=== PATIENT | male | born 1945 | race Caucasian/White ===

== ENCOUNTER 2017-10-15 12:13 | Outpatient (CLI) | payer MEDICARE, MEDICAID ==
[2017-10-16] MEDS ORDERED: HYDROCODONE-APA1 TAB PO (21:05)
[2017-10-16] MEDS ORDERED: ULTRAM50 MG PO (21:05)
== END 2017-10-15 19:30 ==
LOC: D.OPS 12:13
DX: D64.9 Anemia, unspecified (principal)

== ENCOUNTER 2017-10-15 19:33 | Inpatient (IN) | payer MEDICARE, MEDICAID ==
[~2017-10-15] VITALS: Ht 182.9 cm; Wt 83.0 kg
--- NOTE | ~2017-10-15 | EC ---
PATIENT:PATI LINTON DATE OF SERVICE: 10/16/17 SEX: M MEDICAL RECORD: [id number] DATE OF : 49 LOCATION:D.M2 D.210 AGE OF PATIENT: 72 ADMISSION DATE: 10/16/17 REFERRING PHYSICIAN: INTERPRETING PHYSICIAN: LUCIO AGUILAR MD ECHOCARDIOGRAM REPORT ECHO CHARGES CLINICAL DIAGNOSIS: ECHOCARDIOGRAPHIC MEASUREMENTS (adult normal given) AC root (d.<3.7cm) cm LV Septum d (<1.2 cm> cm Valve Excursion cm LV Septum (systole) cm Left Atria (s.<4.0cm> cm LVPW d(<1.2cm) cm RV (d.<2.3cm) cm LVPW (sytole) cm LV diastole(<5.6CM) cm MV E-F(>70mm/sec) cm LV systole cm LVOT Diameter cm MV exc.(>10mm) cm Est.ejection fraction (50-75%) % Pericardial Effusion DOPPLER: LVIT cm/sec A cm/sec E cm/sec LA cm/sec RVSP mmHg LVOT cm/sec AOP1/2T m/s Asc. Ao cm/sec RVOT cm/sec RA cm/sec PA cm/sec AV Gradient Peak mmHg AV Mean mmHg AV Area cm MV Gradient Peak mmHg MV Mean mmHg MV Area cm COMMENTS: [place] Line Attendant: Mortuary Operations Manager: LU DATE OF SERVICE: 10/16/2017 ECHOCARDIOGRAM FINDINGS: 1. Left ventricular chamber size is within normal limits. Left ventricular systolic function is normal. Overall ejection fraction estimated at 55%. 2. Left atrium is enlarged at 4.1 cm. Right atrium and right ventricular chamber sizes are as well mildly dilated. 3. Valvular structures have normal structure and motion. ECHOCARDIOGRAM REPORT [id number] PATI LINTON 4. Doppler interrogation reveals moderate mitral regurgitation, mild tricuspid regurgitation, no other valvular insufficiency or stenosis. 5. No evidence of pericardial effusion or left ventricular thrombus. TRANSINT:[id number] Voice Confirmation ID: [id number] DOCUMENT ID: [id number] LUCIO AGUILAR MD at 1202 CC: [id number] DICTATION DATE: 10/16/17 1231 SENIOR REPORT DEVELOPER: 10/16/17 1311 DIS IN 10/18/17 [place] [id number] [place] [address]
[2017-10-15 20:42] LABS: BASOPHILS 0.2 % (0-2); EOSINOPHILS 1.7 % (0-7); HEMATOCRIT 29.9 % (42.0-54.0); HEMOGLOBIN 8.8 g/dL (13.5-17.5); IMMATURE GRANULOCYTES 0.2 % (0-5); MCH 22.4 pg (26.0-34.0); MCHC 29.4 g/dL (31.0-37.0); MCV 76.1 fL (80.0-100.0); MONOCYTES 10.9 % (2-11); PLATELET COUNT 193 10x3/uL (130-400); RBC 3.93 10x6/uL (4.20-6.10); RDW 16.8 % (11.5-14.5); WBC 10.7 10x3/uL (4.8-10.8)
[2017-10-15 20:58] LABS: % SATURATION 7 % (15-55); IRON 37 ug/dl (35-150); TOTAL IRON BIND CAPACITY 482 ug/dl (260-445); UNSAT IRON BIND CAPACITY 445 ug/dl (150-375)
[2017-10-15 21:18] LABS: ALBUMIN 3.3 g/dL (3.4-5.0); ALKALINE PHOSPHATASE 71 U/L (46-116); ALT (SGPT) 22 U/L (10-68); BILIRUBIN - TOTAL 0.76 mg/dL (0.2-1.3); CALC OSMOLALITY 276 mosm/kg (275-300); CALCIUM 8.7 mg/dL (8.5-10.1); CARBON DIOXIDE 27.7 mmol/L (21.0-32.0); CHLORIDE - SERUM 103 mmol/L (98-107); CREATININE - SERUM 0.9 mg/dL (0.6-1.3); FERRITIN 19 ng/mL (3-244); GLUCOSE 94 mg/dL (74-106); PRO BNP 3171 pg/mL (0-125); SODIUM 140 mmol/L (136-145); UREA NITROGEN 8 mg/dL (7-18); eGFR NON AFRICAN AMERICAN 89 mL/min (90-120)
[2017-10-15 21:22] LABS: POTASSIUM - SERUM 2.9 mmol/L (3.5-5.1)
[2017-10-16] VITALS (21 sets, daily range): BP systolic 145–182; BP diastolic 76–99; Ht 182.9 cm; Wt 83.0 kg
[2017-10-16 01:03] LABS: CKMB 0.9 U/L (0.0-3.6); CREATINE KINASE 419 UL (21-232)
[2017-10-16 04:28] LABS: BASOPHILS 0.2 % (0-2); EOSINOPHILS 0.7 % (0-7); HEMATOCRIT 27.8 % (42.0-54.0); HEMOGLOBIN 8.2 g/dL (13.5-17.5); IMMATURE GRANULOCYTES 0.2 % (0-5); MCH 22.3 pg (26.0-34.0); MCHC 29.5 g/dL (31.0-37.0); MCV 75.5 fL (80.0-100.0); MEAN PLATELET VOLUME 9.1 fL (7.4-10.4); MONOCYTES 13.7 % (2-11); NEUTROPHILS 76.2 % (40-80); PLATELET COUNT 202 10x3/uL (130-400); RBC 3.68 10x6/uL (4.20-6.10); RDW 16.8 % (11.5-14.5); WBC 10.2 10x3/uL (4.8-10.8)
[2017-10-16 05:19] LABS: CALC OSMOLALITY 279 mosm/kg (275-300); CALCIUM 8.5 mg/dL (8.5-10.1); CARBON DIOXIDE 29.8 mmol/L (21.0-32.0); CHLORIDE - SERUM 102 mmol/L (98-107); CREATINE KINASE 344 UL (21-232); GLUCOSE 93 mg/dL (74-106); SODIUM 141 mmol/L (136-145); UREA NITROGEN 9 mg/dL (7-18); eGFR NON AFRICAN AMERICAN 78 mL/min (90-120)
[2017-10-16 05:20] LABS: POTASSIUM - SERUM 2.9 mmol/L (3.5-5.1); TROPONIN-I 0.206 ng/mL (0.000-0.060)
[2017-10-16 14:36] LABS: BASOPHILS 0.3 % (0-2); EOSINOPHILS 1.7 % (0-7); HEMATOCRIT 26.8 % (42.0-54.0); HEMOGLOBIN 8.1 g/dL (13.5-17.5); IMMATURE GRANULOCYTES 0.3 % (0-5); LYMPHOCYTES 9.6 % (15-50); MCH 22.4 pg (26.0-34.0); MCHC 30.2 g/dL (31.0-37.0); MEAN PLATELET VOLUME 9.1 fL (7.4-10.4); MONOCYTES 13.2 % (2-11); NEUTROPHILS 74.9 % (40-80); PLATELET COUNT 187 10x3/uL (130-400); RBC 3.62 10x6/uL (4.20-6.10); RDW 16.9 % (11.5-14.5); WBC 9.6 10x3/uL (4.8-10.8)
[2017-10-16 17:43] LABS: POTASSIUM - SERUM 3.2 mmol/L (3.5-5.1)
[2017-10-16 17:51] LABS: TROPONIN-I 0.092 ng/mL (0.000-0.060)
[2017-10-16] MEDS ORDERED: ULTRAM50 MG PO (21:05)
[2017-10-16] MEDS ORDERED: HYDROCODONE-APA1 TAB PO (21:05)
[2017-10-16 21:57] LABS: BASOPHILS 0.3 % (0-2); EOSINOPHILS 1.6 % (0-7); HEMATOCRIT 30.1 % (42.0-54.0); IMMATURE GRANULOCYTES 0.2 % (0-5); MCH 22.6 pg (26.0-34.0); MCHC 29.9 g/dL (31.0-37.0); MCV 75.4 fL (80.0-100.0); MONOCYTES 13.4 % (2-11); NEUTROPHILS 75.5 % (40-80); PLATELET COUNT 184 10x3/uL (130-400); RBC 3.99 10x6/uL (4.20-6.10); WBC 8.8 10x3/uL (4.8-10.8)
[2017-10-17] VITALS (19 sets, daily range): BP systolic 146–180; BP diastolic 71–107
[2017-10-17] MEDS ORDERED: KLONOPIN0.5 MG (02:45)
[2017-10-17 04:54] LABS: BASOPHILS 0.2 % (0-2); EOSINOPHILS 2.4 % (0-7); HEMATOCRIT 29.4 % (42.0-54.0); HEMOGLOBIN 8.8 g/dL (13.5-17.5); IMMATURE GRANULOCYTES 0.1 % (0-5); LYMPHOCYTES 14.8 % (15-50); MCH 22.3 pg (26.0-34.0); MCHC 29.9 g/dL (31.0-37.0); MCV 74.6 fL (80.0-100.0); MEAN PLATELET VOLUME 9.2 fL (7.4-10.4); MONOCYTES 18.3 % (2-11); NEUTROPHILS 64.2 % (40-80); RBC 3.94 10x6/uL (4.20-6.10); WBC 9.4 10x3/uL (4.8-10.8)
[2017-10-17 05:13] LABS: PLATELET COUNT 232 10x3/uL (130-400)
[2017-10-17 05:14] LABS: INR 1.09 (0.85-1.17); PROTIME 13.7 SECONDS (11.6-15.0)
[2017-10-17 05:21] LABS: ALKALINE PHOSPHATASE 45 U/L (46-116); ALT (SGPT) 17 U/L (10-68); CALC OSMOLALITY 275 mosm/kg (275-300); CALCIUM 8.5 mg/dL (8.5-10.1); CARBON DIOXIDE 26.7 mmol/L (21.0-32.0); CHLORIDE - SERUM 102 mmol/L (98-107); GLUCOSE 72 mg/dL (74-106); POTASSIUM - SERUM 3.6 mmol/L (3.5-5.1); PRE-ALBUMIN 15.1 mg/dL (18.0-35.7); PROTEIN - SERUM 6.6 g/dL (6.4-8.2); SODIUM 139 mmol/L (136-145); UREA NITROGEN 11 mg/dL (7-18); eGFR NON AFRICAN AMERICAN 78 mL/min (90-120)
[2017-10-17 10:18] LABS: BASOPHILS 0.3 % (0-2); EOSINOPHILS 2.8 % (0-7); HEMOGLOBIN 8.4 g/dL (13.5-17.5); LYMPHOCYTES 10.6 % (15-50); MCH 22.5 pg (26.0-34.0); MCV 74.9 fL (80.0-100.0); MEAN PLATELET VOLUME 9.3 fL (7.4-10.4); MONOCYTES 20.4 % (2-11); NEUTROPHILS 65.9 % (40-80); PLATELET COUNT 210 10x3/uL (130-400); RBC 3.74 10x6/uL (4.20-6.10); RDW 17.1 % (11.5-14.5)
[2017-10-17 16:22] LABS: BASOPHILS 0.3 % (0-2); EOSINOPHILS 2.2 % (0-7); HEMATOCRIT 31.5 % (42.0-54.0); HEMOGLOBIN 9.5 g/dL (13.5-17.5); IMMATURE GRANULOCYTES 0.1 % (0-5); LYMPHOCYTES 9.2 % (15-50); MCH 22.6 pg (26.0-34.0); MCHC 30.2 g/dL (31.0-37.0); MEAN PLATELET VOLUME 9.5 fL (7.4-10.4); MONOCYTES 16.5 % (2-11); NEUTROPHILS 71.7 % (40-80); PLATELET COUNT 243 10x3/uL (130-400); RDW 17.3 % (11.5-14.5); WBC 6.9 10x3/uL (4.8-10.8)
[2017-10-17] MEDS ORDERED: MAG-OXIDE400 MG PO (17:34)
[2017-10-17] MEDS ORDERED: COREG12.5 MG PO (17:37)
[2017-10-17] MEDS ORDERED: FLOMAX0.4 MG PO (17:38)
[2017-10-17] MEDS ORDERED: K-TAB10 MEQ PO (17:38)
[2017-10-17] MEDS ORDERED: GLUCOPHAGE500 MG PO (17:38)
[2017-10-17] MEDS ORDERED: NEXIUM40 MG PO (17:39)
[2017-10-17] MEDS ORDERED: TRICOR145 MG PO (17:42)
[2017-10-17] MEDS ORDERED: MYRBETRIQ25 MG PO (17:43)
[2017-10-17] MEDS ORDERED: PAXIL20 MG PO (17:43)
[2017-10-17] MEDS ORDERED: LIPITOR20 MG PO (17:44)
[2017-10-17] MEDS ORDERED: NIASPAN1000 MG PO (17:44)
[2017-10-17] MEDS ORDERED: FUROSEMIDE20 MG PO (17:44)
[2017-10-17] MEDS ORDERED: EFFEXOR XR75 MG PO (17:45)
[2017-10-17] MEDS ORDERED: BUPROPION HCL200 M1 PO (17:45)
[2017-10-17] MEDS ORDERED: XARELTO20 MG PO (17:46)
[2017-10-17] MEDS ORDERED: PROAIR HFA8.5 GM INH (17:46)
[2017-10-17] MEDS ORDERED: CYMBALTA60 MG PO (17:48)
[2017-10-17 21:11] LABS: BASOPHILS 0.3 % (0-2); EOSINOPHILS 1.9 % (0-7); HEMATOCRIT 29.1 % (42.0-54.0); HEMOGLOBIN 8.5 g/dL (13.5-17.5); IMMATURE GRANULOCYTES 0.1 % (0-5); LYMPHOCYTES 10.6 % (15-50); MCHC 29.2 g/dL (31.0-37.0); MCV 75.4 fL (80.0-100.0); MEAN PLATELET VOLUME 9.1 fL (7.4-10.4); MONOCYTES 20.6 % (2-11); NEUTROPHILS 66.5 % (40-80); PLATELET COUNT 223 10x3/uL (130-400); RBC 3.86 10x6/uL (4.20-6.10); RDW 17.2 % (11.5-14.5); WBC 7.3 10x3/uL (4.8-10.8)
[2017-10-18 04:00] VITALS: BP 171/78
[2017-10-18 05:46] LABS: BASOPHILS 0.3 % (0-2); HEMOGLOBIN 8.8 g/dL (13.5-17.5); IMMATURE GRANULOCYTES 0.1 % (0-5); MCH 21.9 pg (26.0-34.0); MCHC 29.3 g/dL (31.0-37.0); MCV 74.6 fL (80.0-100.0); MEAN PLATELET VOLUME 9.3 fL (7.4-10.4); MONOCYTES 16.1 % (2-11); NEUTROPHILS 68.5 % (40-80); PLATELET COUNT 205 10x3/uL (130-400); RBC 4.02 10x6/uL (4.20-6.10); RDW 17.3 % (11.5-14.5)
[2017-10-18 06:05] LABS: ALKALINE PHOSPHATASE 79 U/L (46-116); BILIRUBIN - TOTAL 1.05 mg/dL (0.2-1.3); CALC OSMOLALITY 275 mosm/kg (275-300); CALCIUM 9.1 mg/dL (8.5-10.1); CARBON DIOXIDE 28.9 mmol/L (21.0-32.0); CHLORIDE - SERUM 101 mmol/L (98-107); GLUCOSE 76 mg/dL (74-106); POTASSIUM - SERUM 3.3 mmol/L (3.5-5.1); PROTEIN - SERUM 6.5 g/dL (6.4-8.2); SODIUM 139 mmol/L (136-145); UREA NITROGEN 9 mg/dL (7-18); eGFR NON AFRICAN AMERICAN 78 mL/min (90-120)
[2017-10-18 06:11] LABS: ALT (SGPT) 24 U/L (10-68)
[2017-10-18 07:30] VITALS: BP 151/77
[2017-10-18 10:44] LABS: BASOPHILS 0.2 % (0-2); EOSINOPHILS 2.3 % (0-7); HEMATOCRIT 28.4 % (42.0-54.0); HEMOGLOBIN 8.4 g/dL (13.5-17.5); IMMATURE GRANULOCYTES 0.2 % (0-5); LYMPHOCYTES 10.7 % (15-50); MCH 22.2 pg (26.0-34.0); MCHC 29.6 g/dL (31.0-37.0); MCV 75.1 fL (80.0-100.0); MEAN PLATELET VOLUME 9.2 fL (7.4-10.4); MONOCYTES 19.1 % (2-11); NEUTROPHILS 67.5 % (40-80); PLATELET COUNT 216 10x3/uL (130-400); RBC 3.78 10x6/uL (4.20-6.10); RDW 17.4 % (11.5-14.5); WBC 6.4 10x3/uL (4.8-10.8)
== END 2017-10-18 14:17 | disposition home or self-care (01) | DRG 377 ==
LOC: D.ER 19:33 → D.EDHOLD 10-16 00:57 → D.ICU 10-16 00:57 → D.M2 10-16 00:57 → D.ICU 10-16 01:27 → D.M2 10-17 20:24
PROVIDERS: Family Medicine; Internal Medicine Gastroenterology; Physician Assistant Medical
PROC: 0DB78ZX Excision of Stomach, Pylorus, Via Natural or Artificial Opening Endoscopic, Diagnostic (ICD-10-PCS; 2017-10-17)
PROC: 0DB58ZX Excision of Esophagus, Via Natural or Artificial Opening Endoscopic, Diagnostic (ICD-10-PCS; 2017-10-17)
PROC: 0DB98ZX Excision of Duodenum, Via Natural or Artificial Opening Endoscopic, Diagnostic (ICD-10-PCS; principal; 2017-10-17 16:30)
DX: K92.2 Gastrointestinal hemorrhage, unspecified (principal); J18.9 Pneumonia, unspecified organism; J81.0 Acute pulmonary edema; D62 Acute posthemorrhagic anemia; I42.9 Cardiomyopathy, unspecified; J81.1 Chronic pulmonary edema; K29.80 Duodenitis without bleeding; K29.00 Acute gastritis without bleeding; K20.9 Esophagitis, unspecified; E87.6 Hypokalemia; I25.10 Atherosclerotic heart disease of native coronary artery without angina pectoris; Z79.01 Long term (current) use of anticoagulants; E11.9 Type 2 diabetes mellitus without complications; Z95.0 Presence of cardiac pacemaker; K21.9 Gastro-esophageal reflux disease without esophagitis; J44.9 Chronic obstructive pulmonary disease, unspecified; R06.03 Acute respiratory distress; I48.2 Chronic atrial fibrillation